=== PATIENT | male | born 1960 | race Native Hawaiian/Other Pacific Islander ===

== ENCOUNTER 2020-07-28 14:49 | Observation (INO) | payer OTHER, SELFPAY ==
[2020-07-20 13:44] VITALS: BMI 28.2
[2020-07-27] VITALS (13 sets, daily range): BP systolic 94–152; BP diastolic 61–95; PULSE 74–98; RESP 12–20; TEMP 35.9–36.9; O2SAT 96–100; BMI 28.2
--- NOTE | 2020-07-27 06:30 | DI.RAD.S_ITS ---
PROCEDURE: XR HIP W PEL IF DONE RT 2V INDICATIONS: post op films TECHNIQUE: AP pelvis and lateral view of the right hip acquired. COMPARISON: [facility], CR, XR PELVIS 1-2V, 07/27/2020, 15:24. [facility], CR, XR PELVIS WITH LATERAL HIP RIGHT, 12/05/2019, 9:35. FINDINGS: Bones: Patient is status post right hip arthroplasty, with hardware components in expected positions. The hip joint appears congruent. The visualized bony structures appear intact. Soft tissues: Overlying postoperative changes are noted. No suspicious soft tissue densities. Vasectomy clips. IMPRESSION: Expected appearance of the right total hip arthroplasty. Dictated by: Mo Robles M.D. on 07/27/2020 at 17:39 Approved by: Mo Robles M.D. on 07/27/2020 at 17:42
--- NOTE | 2020-07-27 12:07 | SUR.PREOP ---
Covid swab collected and sent. Patient here in wheelchair and with two walking sticks. Asking for assistance with the bathroom. Wheeled patient to lobby bathroom and assisted. Patient asking for water and advised patient no water before surgery but that he would need to swallow some pre-op medications and could have sips of water at that time. V/U. Patient asking to take a shower; patient is homeless. Advised patient that there was no place available for him to take a shower. Asked patient if he had a place to recover after he is discharged home and patient states that yes, he has a place to go to after he is discharged from the hospital. Advised patient that as soon as his COVID test showed negative, this nurse would assist him to the Pre-op area. V/U.
[2020-07-27 13:07] LABS: COVID19 -Nasal RAPID Negative (Negative)
[2020-07-27 13:45] LABS: Add Manual Diff / Slide Review NO; Basophils Absolute Auto 100 /uL (0-100); Basophils Percent Auto 1.2 % (0-2); Eosinophils Absolute Auto 200 /uL (0-450); Eosinophils Percent Auto 2.1 % (2-4); Hematocrit 44.8 % (41-53); Hemoglobin 14.5 g/dL (13.5-17.5); Lymphocytes Absolute Auto 1200 /uL (1100-4500); Lymphocytes Percent Auto 15.2 % (25-40); Mean Corpuscular HGB Conc 32.3 % (30-36); Mean Corpuscular Hemoglobin 26.5 PG (26-34); Mean Corpuscular Volume 81.9 fL (80-100); Monocytes Absolute Auto 1000 /uL (0-900); Monocytes Percent Auto 12.8 % (3-14); Neutrophils Absolute Auto 5600 /uL (1500-7000); Neutrophils Percent Auto 68.7 % (50-75); Platelet Count 375 X10^3/uL (150-400); Red Blood Cell Count 5.47 X10^6/uL (4.5-5.9); Red Cell Distribution Width 14.3 % (11.6-14.8); White Blood Cell Count 8.1 X10^3/uL (4.5-11.0)
[2020-07-27] MEDS: ACETAMINOPHEN 325 MG TABLET 975 MG PO (13:45)
[2020-07-27] MEDS: LACTATED RINGERS 1,000 ML 42 ML IV ×2 (13:45→15:28)
--- NOTE | 2020-07-27 13:45 | DI.RAD.S_ITS ---
PROCEDURE: XR PELVIS 1-2V INDICATIONS: INNER OP TECHNIQUE: Intraop view(s) of the pelvis acquired. COMPARISON: None. FINDINGS: Bones: No fractures or dislocations. No suspicious bony lesions. Intraoperative imaging obtained during right hip arthroplasty. Soft tissues: Visualized bowel gas pattern is normal. No suspicious soft tissue calcifications. IMPRESSION: Intraoperative imaging obtained during right hip arthroplasty. Dictated by: Radha Franco M.D. on 07/27/2020 at 16:26 Approved by: Radha Franco M.D. on 07/27/2020 at 16:26
[2020-07-27] MEDS: MELOXICAM 7.5 MG TABLET 15 MG PO (13:46)
[2020-07-27] MEDS: VANCOMYCIN 1,000 MG/200 ML PIGGYBACK 200 MG IV (13:46)
--- NOTE | 2020-07-27 13:51 | PM.PREOP ---
Pre-operative Note COVID-19 Result date/Date tested (Pos, Neg/Pending): 07/27/20 Interval Note History & Physical reviewed/Exam performed by Physician: Yes Changes to H&P: No
[2020-07-27 13:56] LABS: BUN Creatinine Ratio 23.5 (6-22); Blood Urea Nitrogen 19 mg/dL (9-20); Calcium 9.5 mg/dL (8.4-10.2); Carbon Dioxide 28 mmol/L (22-32); Chloride 102 mmol/L (98-107); Estimated Glomerular Filt Rate > 60.0 mL/min (>60); Glucose 168 mg/dL (70-100); Hemoglobin A1C% w Est Avg Glu 8.2 % (4.0-6.0); Potassium 4.3 mmol/L (3.4-5.1); Sodium 139 mmol/L (137-145)
[2020-07-27 13:57] LABS: HEMOLYSIS 75 (0-50)
[2020-07-27] MEDS: CEFAZOLIN 1 GM VIAL 2 GM IV ×2 (14:26→21:13)
--- NOTE | 2020-07-27 14:37 | SUR.OPER ---
Left Lateral on padded OR bed. Gel axillary roll. Arms secured on padded arm board with pillow supporting top arm. Padded hip positioner braces x4 - anterior and posterior chest and pelvis. Additional gel pad used anterior pelvis. Gel pad under bottom leg from knee to foot and secured with tape over sheet.
[2020-07-27] MEDS: TRANEXAMIC ACID 1,000 MG VIAL 1000 MG INJ ×2 (14:43→15:59)
[2020-07-27] MEDS: SODIUM CHLORIDE IRRIG SOLUTION 250 ML, POVIDONE-IODINE SPONGE STICKS 1 APPLIC IRR (14:44)
[2020-07-27] MEDS: SODIUM CHLORIDE IRRIG SOLUTION 250 ML, EPINEPHrine 1 MG IRR (14:44)
[2020-07-27] MEDS: BUPIVACAINE 0.5% W/ EPI (PF) 30 ML VIAL INJ (14:45)
[2020-07-27] MEDS: BUPIVACAINE LIPOSOME 266 MG/20 ML VIAL INJ (14:45)
--- NOTE | 2020-07-27 16:09 | PM.OP.1 ---
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 He had very extensive conservative treatment and a slightly brought to the operating room for a right total hip arthroplasty. No spent years attempting to get him medically stabilized and socially in and acceptable living situation as well as adequate control of his diabetes. A plan is for right total total hip arthroplasty. Anticipate he will require inpatient admission. He requires monitoring of his diabetes and his overall mobility had deteriorated to the extent that he was essentially wheelchair bound. The plan is to actively mobilize him full weight-bearing on the right leg Surgeon: Angella Garcia Log Haul Chain Feeder: Lobo Byers Anesthesia Type: General and Spinal Operative Notes Findings: Severe right hip collapse, soft bone, significant hip flexion and adduction contracture, adequate stability and range of motion Closure Type: primary Specimen(s): none sent Prosthetic devices, grafts, tissues, transplants, or devices: Garcia [employer] Nephew 58 mm R3 cup, size 10 standard offset anthology, two 6.5 mm screws, neutral poly liner, +4 by 36 head Applied: drain(s) Estimated Blood Loss (mL): 250 Blood products transfused: none Procedure in detail: The patient was seen in the pre-operative area, where the patient identified the right hip as the operative site and this was marked with my initials. The patient received pre-operative antibiotics and was taken to the operating room and placed on the operative table in the left lateral decubitus position after satisfactory anesthesia. A maritime engineer out was performed. The right leg was prepared from the ankle to the iliac crest with ChloroPrep in the usual fashion and draped through sterile drapes. The hip was approached through an approximately 20 cm incision centered over the greater trochanter and curving gently posteriorly as it went proximally. This was carried sharply to the fascia mati, which was divided and retracted with a self retaining retractor. The trochanteric bursa was excised with care being taken to avoid the sciatic nerve, which was identified and protected throughout the case. The short external rotators were incised and the capsulomuscular flap was raised and tagged for later repair. He had marked osteophyte formation and meticulous capsular release was performed from around the posterior and anterior aspect of the acetabulum. I specifically attempted to free things as much as possible in order to allow dislocation as he had a severe stiff hip with a hip flexion contracture. The hip was dislocated, and a femoral neck osteotomy performed approximately 15 mm above the lesser trochanter. Retractors were placed around the femur. The canal was opened with a box cutting osteotome, followed by a T handled reamer and a lateralizing reamer. The chili pepper broach was then used, followed by sequential broaching until there was good stability of the broach in the femur. Retractors were placed to expose the acetabulum. The labrum and central soft tissues were removed. There were marked osteophytes especially anteriorly and there were meticulously removed in order to allow exposure to the true acetabulum. Reaming was performed initially going up in 2 mm increments, then 1 mm increments until good bite was obtained with an odd sized reamer. Trial cup was placed and it was noted that it was adequately seated and had some stability The cup 1 mm larger than the last reamer was then inserted using the appropriate anteversion guides. The position was carefully checked and it was fixed with 2 screws. A trial neutral liner was placed. The broach was placed in the canal. A trial head and neck were then placed and the hip relocated and checked for leg length and stability. An intraoperative film confirmed the component position and no evidence of fracture. The patient was stable in the position of sleep, of squatting, and could be put through a range of motion with 45 degrees internal rotation without dislocation. At 90 degrees flexion, internal rotation to 90 was possible before dislocation. The hip was a little short clinically. It had good stability in I thought I would probably use a +4 neck. This was felt to be satisfactory and the appropriate components were opened, and the trials were removed. The acetabular liner was impacted into position. The final stem was then impacted into the prepared femoral canal. A brief Betadine soak was performed while trialing with head options. The hip was meticulously irrigated with normal saline. Finally the femoral head was impacted onto the stem. The acetabulum was cleared of all material and the hip relocated one final time. The capsulomuscular flap was then repaired to the greater trochanter though an awl hole using the tag sutures. The short external rotators were repaired with a nonabsorbable suture. A deep drain was placed and brought out anteriorly. The fascia mati was closed with Vicryl. The subcutaneous layer was closed with barbed sutures and SteriStrips. A Arvind dressing was applied and the patient was taken to recovery having tolerated the procedure well. Complications: none Post-operative Condition: stable Disposition: Acute Care Plan for aftercare: The patient will be maintained on a standard total hip replacement protocol with weight bearing as tolerated and posterior hip precautions. The patient will receive Aspirin and sequential compression devices for DVT prophylaxis. The patient will be discharged home when safe for the home environment.
--- NOTE | 2020-07-27 17:31 | SUR.PHASEI ---
Call placed to Anesthesiologist Nuts And Bolts Assembler - Dr Rodriguez. Pt continues to be very sleepy. Responding to GRAIN ELEVATOR AGENT Mark but immediately falls asleep. VSS. No acute distress. Affect calm and relaxed. Pt reportedly homeless and had showered in Preop prior to surgery where he had communicated presence of fatigue prior to surgery. Pupils PERRLA. Skin warm and dry. Dr Rodriguez confirmed pt being admitted to room prior to giving consent allowing pt to go to room 216 so that he may sleep and rest.
[2020-07-27] MEDS: LACTATED RINGERS 1,000 ML 125 ML IV (18:32)
--- NOTE | 2020-07-27 18:33 | PC.NURSE ---
PATIENT BACK FRO PACU,SOMNOLENT WILL WALK TO LOUD NAME AND TOUCH, BACK OUT TO SLEEP.SCDS ACTIVE,HEMOVAC AND SUZETTE IN PLACE.IV FLUIDS INFUSING CBG 137 PATIENT DOES NOT WANT TO EAT AT THIS TIME. BED ALARM ACTIVE
[2020-07-27] MEDS: DOCUSATE 100 MG CAPSULE PO (21:12)
[2020-07-27] MEDS: ACETAMINOPHEN 325 MG TABLET 650 MG PO (21:12)
[2020-07-27] MEDS: GABAPENTIN 300 MG CAPSULE PO (21:13)
[2020-07-27] MEDS: METFORMIN HCL 500 MG TABLET 1000 MG PO (21:13)
[2020-07-27] MEDS: IBUPROFEN 400 MG TABLET PO (21:13)
[2020-07-27] MEDS: ASPIRIN EC 81 MG TABLET PO (21:13)
[2020-07-27] MEDS: ATORVASTATIN 20 MG TABLET PO (21:13)
[2020-07-27] MEDS: OXYCODONE IR 5 MG TABLET 10 MG PO (21:31)
[2020-07-28] VITALS (9 sets, daily range): BP systolic 101–125; BP diastolic 52–78; PULSE 88–95; RESP 14–19; TEMP 36.1–37.6; O2SAT 94–98
[2020-07-28] MEDS: IBUPROFEN 400 MG TABLET PO ×6 (00:37→21:11)
[2020-07-28] MEDS: OXYCODONE IR 5 MG TABLET 10 MG PO (00:37)
[2020-07-28] MEDS: LACTATED RINGERS 1,000 ML 125 ML IV (02:25)
[2020-07-28] MEDS: CEFAZOLIN 1 GM VIAL 2 GM IV (05:27)
[2020-07-28 05:33] LABS: Hematocrit 39.4 % (41-53); Hemoglobin 12.6 g/dL (13.5-17.5)
[2020-07-28] MEDS: METFORMIN HCL 500 MG TABLET 1000 MG PO ×2 (08:34→21:11)
[2020-07-28] MEDS: ASPIRIN EC 81 MG TABLET PO ×2 (08:35→21:10)
[2020-07-28] MEDS: TAMSULOSIN 0.4 MG CAPSULE PO (08:35)
[2020-07-28] MEDS: DOCUSATE 100 MG CAPSULE PO ×2 (08:35→21:10)
[2020-07-28] MEDS: ACETAMINOPHEN 325 MG TABLET 650 MG PO ×3 (08:35→21:10)
[2020-07-28] MEDS: GABAPENTIN 300 MG CAPSULE PO ×2 (08:35→21:10)
[2020-07-28] MEDS: lisinopriL 10 MG TABLET 15 MG PO (08:38)
[2020-07-28] MEDS: METOPROLOL ER 25 MG TABLET PO (08:40)
[2020-07-28] MEDS: NF - Empagliflozin (Jardiance) 10 mg Tablet 10 EACH PO (09:34)
[2020-07-28] MEDS: OXYCODONE IR 5 MG TABLET PO ×3 (09:37→19:14)
--- NOTE | 2020-07-28 11:15 | PT.IIE ---
Current Diagnoses Idiopathic aseptic necrosis of right femur (07/27/20) Surgery Performed Operation Date: 07/27/20 13:45 Actual Procedures p Total Hip Arthroplasty(Right) - Angella Garcia MD Surgical History (Last Updated 04/20/20 @ 12:31 by Patsy Neri, RENATO) H/O Achilles tendon repair History of appendectomy History of colon resection History of colonoscopy S/P left knee arthroscopy S/P right knee arthroscopy Medical History (Last Updated 07/20/20 @ 14:27 by Pebbles Watts, RENATO) Abdominal pain Arrhythmia Depression Diverticulitis Elevated cholesterol Enlarged prostate Fracture Headache History of diverticulitis History of diverticulosis Hyperlipidemia Hypertension IDDM (insulin dependent diabetes mellitus) Idiopathic aseptic necrosis of right femur Intentional weight loss Low back pain Macular drusen Peripheral neuropathy Psychosocial stressors RBBB Sleep apnea Tachycardia Umbilical hernia Physical Therapy Inpatient Evaluation/Re-Eval M1 PT/OT-IP Prior Functional Status Start: 07/28/20 12:55 Freq: NEEDED Status: Active Protocol: Document 07/28/20 11:15 AB (Rec: 07/28/20 13:08 [email or web address]) Medical Review Prior Functional Status Medical History Reviewed Yes Communication able to make needs known Mobility and Gait pt stated that he is modified independent with all mobilities and ambulation using bilateral SPC for ambulation; limited in mobility due to hip pain Social History Household Members none Living Arrangements Homeless Number of Floors (Floors) One Floor Number of Stairs To Enter/Railing? 2 steps B rails to enter Home Environment High Toilet,Walk in Shower Home Equipment Four Wheel Walker,Straight Cane,Shower Seat with Backrest ,Hand Held Shower,Grab Bars Near Toilet,Grab Bars In Shower Additional Social History Comment pt is homeless but plans to go to [employer] if needed: set up above is regarding [employer] info M2 PT-IP Current Condition Start: 07/28/20 12:55 Freq: NEEDED Status: Active Protocol: Document 07/28/20 11:15 AB (Rec: 07/28/20 13:08 AB [email or web address]) Physical Therapy Current Condition Current Condition Evaluation Date 07/28/20 Treatment Diagnosis s/p R ZHEN posterior approach; difficulty in walking Onset Date 07/27/20 Precautions Posterior Hip Precautions No Hip Flexion > 90 degrees,No Hip Internal Rotation,No Hip Adduction Weight Bearing Status Weight Bearing Status Weight Bear as Tolerated Allowed Weight Bearing Amount (enter % RLE: WBAT or #) (%) M3 PT-IP Subjective Start: 07/28/20 12:55 Freq: NEEDED Status: Active Protocol: Document 07/28/20 11:15 AB (Rec: 07/28/20 13:08 [id number]) Subjective Physical Therapy Visit Type Type Initial Evaluation Visit Start Time 11:15 Visit Stop Time 12:05 Total Visit Minutes 50 Number of COMMUNITY OUTREACH ADVOCATE Visits 0 Physical Therapy Visit Comments Patient Comments agreeable to do PT Therapy Pain Assessment Pain When Pain Assessed At Rest Pain Present Pain Present Pain Reported Location Right Lower Hip Intensity 2 Scale Used increases with mobility Pain Behaviors Guarding,Holding Area,Wincing Pain Management Techniques Apply Cold,Distraction, Modification of Treatment,Re- positioning,Timing of Activity with Medications M4 PT-IP Mobility and Gait Start: 07/28/20 12:55 Freq: NEEDED Status: Active Protocol: Document 07/28/20 11:15 AB (Rec: 07/28/20 13:08 [email or web address]) PT-Bed Mobility Assessment Supine to Sit Supine to Sit Maximum Assistance PT-Transfer Assessment Sit to and From Stand Sit to and from Stand Maximum Assistance,1 Person Assistance Equipment Transfer Assistive Device Gait Belt,Front Wheeled Walker Orthotic/Prosthetic Devices or Brace: No Transfers Transfer Destination Toilet Transfer Technique ambulated using FWW Transfer Ability Level of Assist Moderate Assistance,Maximum Assistance,1 Person Assistance ,Use of Upper Extremities Comments Mobility Comments educated pt on posterior hip precautions. pt completed supine to sit max A and max cues. pt tends to hook LLE under RLE to assist and cued for hip precautions. pt has increase muscle guarding not only on RLE but also trunk guarding affecting mobility and increase pain. pt tends to anticipate the pain and tense up his whole body requiring increase assistance for safety and steadiness. pt was able to sit on EOB initially max A but after positioning and assuring pt, pt was able to relax and only needed CGA for sitting balance. required max A for sit to stand and again with increase guarding. initial 5 steps max A but after a few more steps only required mod A using FWW. pt ambulated in room ~ 25 ft mod to max A and cues. pt requested to use the toilet. ambulated using FWW mod A and was able to maintain standing using FWW/grab bar for support CGA. pt ambulated out of the toilet and agreed to sit up on chair. required max A with controlled descent to chair with cues to maintain hip precautions. positioned pt on chair. call light and table placed within reach. Gait Assessment Gait Gait Assistance Required: Moderate Assistance,Maximum Assistance Distance (Feet) 25 Able to Maintain Weight Bearing Status Yes During Gait Assistive Devices Assistive Device Gait Belt,Front Wheeled Walker Orthotic/Prosthetic Devices or Brace: No Gait Deviations General Gait Pattern Antalgic,Decreased Stride Length,Decreased Feet Clearance Factors Limiting Gait Function Factors Limiting Gait Function Decreased Activity Tolerance, Decreased Strength,Difficulty Following Directions,Limited Range of Motion,Pain,Poor Balance,Poor Safety Awareness Comments Gait Comments pls refer to mobility section for details PT-Balance Assessment Sitting Balance and Reactions Static Sitting Balance Ability Good Dynamic Sitting Balance Ability Fair Standing Balance and Reactions Static Standing Balance Ability Fair Dynamic Standing Balance Ability Poor Device Used FWW M5 PT-IP Objective Assessments Start: 07/28/20 12:55 Freq: NEEDED Status: Active Protocol: Document 07/28/20 11:15 AB (Rec: 07/28/20 13:08 AB [email or web address]) Orientation Orientation/Cognition Level of Alertness Alert Orientation Name,Place,Situation Safety Awareness Decreased Safety Awareness Memory Description Short Term Impaired Strength Lower Extremity Strength Assessment Right Impaired Hip 3-/5 Knee 3+/5 Sensation Assessment Sensation Gross Sensation WNL Muscle Tone Muscle Tone WNL Yes M6 PT-IP Treatment Start: 07/28/20 12:55 Freq: NEEDED Status: Active Protocol: Document 07/28/20 11:15 AB (Rec: 07/28/20 13:08 AB [email or web address]) Physical Therapy Treatment Education Education Provided Precautions,Weight Bearing Status,Post-Op Packet,Safety M7 PT-IP Assessment and Plan Start: 07/28/20 12:55 Freq: NEEDED Status: Active Protocol: Document 07/28/20 11:15 AB (Rec: 07/28/20 13:08 AB [email or web address]) PT Summary Assessment and Plan Potential Rehabilitation Potential Good Status of Condition at Evaluation Evolving Summary Impairments Pain,ROM,Strength,Balance, Coordination,Sensation,Tone, Cognition,Bed Mobility, Transfers,Gait,Activity Tolerance Assessment Summary pt requiring mod to max A using FWW for mobility. c/o increase pain with mobility with increase guarding affecting mobility and safety. requires cues to maintain hip precautions. pt will need SNF rehab to improve strength and mobility independence. Goals Bed Mobility Goal Standby Assistance Transfer Goal Standby Assistance,Front Wheeled Walker Gait Goal Standby Assistance,Front Wheel Walker Gait Distance 100 Other Goals improve ambulation usign 4WW 150 ft SBA up/down 2 steps B rails SBA Days to Meet Goals 10 Frequency of Treatment Frequency Of Treatment Twice a Day Treatment Plan Physical Therapy Treatment Plan Bed Mobility Training,Transfer Training,Gait Training, Therapeutic Exercise,Balance Retraining,Post Op Education, Discharge Planning,Hot or Cold Pack,Neuromuscular Re-ed, Coordination Retraining,Manual Therapy Precautions Posterior Hip Precautions No Hip Flexion > 90 degrees,No Hip Internal Rotation,No Hip Adduction Recommendations To Nursing Amount of Assist Needed 1 Person Assist Discharge Recommendations PT Discharge Recommendations SNF Rehab Transportation Needs at Discharge Wheelchair/Cabulance
--- NOTE | 2020-07-28 11:39 | CM.DANOTE ---
Addendum entered by Frances Crandallman, BLOCKING MACHINE OPERATOR SECOND 07/28/20 14:22: ADD: SW called both [facility] and [facility] admissions and left another msg inquiring if they had received the referral and if they have reviewed and have any questions and likely ready for d/c tomorrow. SW requested they call back with update or questions. BF Addendum entered by Frances Bautista, BLOCKING MACHINE OPERATOR SECOND 07/28/20 13:59: ADD: Return call from July at [facility], they are not contracted with L&I but willing to contact L&I casemanager to determine if [facility] and [facility] facilities cannot accept if L&I would be willing to do one time contract with [facility]. BF Original Note: Patient is a 60 year old male who was admitted on 07/27/20 for Right Total Hip. Pt has L&I for coverage of his surgery and ROSAS. EMR was reviewed. Per Asia REYNOSO, pt likely will need SNF at d/c as he is currently staying in his car and working on local company intermodal truck driver housing. PT ordered and pending. Per CM Swatch Maker Umu, due to pt's homeless status [facility] team had alerted CM dept prior to pt's discharge to set up d/c plan after surgery. CM Swatch Maker Umu has been in contact with SNO and L&I Josie who has approved SNF at d/c. Per Pebbles Watts's discussion with pt prior to surgery, pt has applied for low income apt in [facility] and should know this week if he is accepted and has back up plan of paying for motel at [facility] in [facility] post SNF stay. SW met bedside with pt and explained role and pt confirms that he is agreeable to SNF at d/c prior to d/c to a longer term situation and pt has not yet heard if his application for apt in [place] was accepted yet. Pt states his preference for SNF would be either in [facility] or [place] due to location that is near his supportive friends and family but he would be agreeable to any accepting SNF. Pt states he has not gotten his COVID vaccinations yet. SW discussed SNF would then require a quarantine period and pt is agreeable. SW contacted following SNF's: [facility]: tight on beds but willing to review, hesitant about d/c plan still. [facility] faxed referral. [facility]: want to confirm pt active on his Rosas as backup, willing to review. Faxed referral. [facility]: left msg for admissions. Faxed referral [facility]: left msg for admissions. Faxed referral. [facility]: updated admissions Nicky on pt situation, they are willing to review. PASRR completed in anticipation of SNF. L&I auth for SNF is scanned into pt's medical record in case SNF's need this documentation. Plan: SW to follow for SNF review for hopeful placement at d/c by tomorrow ideally. LISA Gutierrez Discharge Planning/Care Management CM Discharge Assessment Start: 07/28/20 10:38 Freq: Status: Active Protocol: Document 07/28/20 10:38 BF (Rec: 07/28/20 10:41 BF [id number]) Discharge Planning Assessment Assigned Ladder Operator LISA Daniels DPOA/Assigned Designee Name none, informally sister Corin Bar Contact Information [phone] Advance Directives? No Advance Directives on File No History Provided By Patient,Medical Record Has Patient been admitted in last 30 No days? 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 Independent with ADL's Yes Is patient alert and oriented? Yes Caregiver for Another No Patient/Family Preference Correction Facility Barriers to Discharge Yes Comment homelessness, L&I has been approved Discharge Plan Correction Facility Transportation Arrangement if SNF, facility van Referrals Initiated Correction If patient plan is SNF: Has PASSR been Yes completed? Medicare Choice List Provided Yes SNF/HH Preference Any that will accept him, preference is [facility], [facility], or [facility] due to location close to his supports Has Agency SNF been contacted Yes Whiteboard Updated in Patient Room with Yes name and ext. # of Ladder Operator Review Status In Process Please Provide Date Initial DC 07/28/20 Assessment Was Performed Next Review Type Continued Stay Review Pre-Anesthesia Assessment Start: 07/20/20 13:44 Freq: Status: Complete Protocol: Document 07/20/20 13:44 CAB (Rec: 07/20/20 14:39 CAB [id number]) Pre-Anesthesia Assessment PAC Comment Pt advised by SNO to have a COVID rapid on admit Pt lives in his car. Preferred Name Pat Patient Information Reviewed Via Phone Assessment Assessment Completed With Patient Comment Outside EKG scanned Primary Care Provider Rosanna Evans Seen Specialist in Last 12 Months Yes Specialist Seen Loss Prevention Detective,Orthopedist Primary Language Greek Preferred Language Greek Emergency Services Dispatcher Required No Height 182.88 cm Weight 94.347 kg Body Mass Index (BMI) 28.2 Hearing Ability Normal Visual Assist Glasses Dentition Type Teeth, Natural Present,Teeth, Broken,Teeth, Missing Barriers to Learning None,Memory Other Aids No Hx Anesthesia Reactions No Hx Family Anesthesia Reaction No Hx Malignant Hyperthermia No Hx Blood Transfusions No Hx Blood Transfusion Reaction No Anesthesia Review Requested Yes: Previously reviewed -scanned to record Malt Loader Yes: Pt lives in his car, approved to go to [place] Additional comment [facility] [place], applied for housing to follow SNF. I notified our care mngmt alcohol intake current alcohol intake frequency a few times a month Smoking Status Current some day smoker Tobacco type cannabis/marijuana Substance Use Type marijuana Comment Pt advised not to smoke marijuana 24 hours prior to surgery Pain Present Pain Reported Musculoskeletal Symptoms Abnormal Gait,Back Pain, Difficulty Walking,Joint Pain, Limited Range of Motion, Numbness History of Falling (Recent or History of No ) Patient is completely paralyzed or No completely immobile Prosthesis or Orthotic Device Cane,Front Wheel Walker Mental Status Oriented to own ability Is patient on oxygen? No Does patient have GARCIA/SOB Yes Hx Sleep Apnea Yes: Pt denies, record notes it Currently Taking a Beta Holley Yes: Metoprolol Can You Climb a Flight of Stairs Without No SOB Hx Chest Pain No Hx SOB No Hx Syncope or Dizziness Yes Anti-Coagulant Therapy No Has a Loss Prevention Detective Yes: Dr. English-visit 05/25/20 Cardiac Testing Yes: Echo 05/21/20 EF 50-55% Hx Pacemaker/ICD No Cardiac Clearance Received Yes Comment Cardiac records scanned Diet Type At Home Regular dysphagia No Bladder Pattern Incontinent Urinary Catheter Present No Hx Urinary Self Catheterization No Diabetes Yes Hx Drug Resistant Organism No Presence of External or Internal Medical No Devices Have you had any close contact with No someone diagnosed with COVID-19? Marital Status Single Lives With none Prior Living Arrangements Homeless Support System None Does the Patient Have Assistance After No: Pt has no one available to Surgery assist with care at DC Patient Discharge Plan Description Correction Facility/Rehab Feels Safe in Current Environment No Do you have thoughts of harming yourself None or others? Are you currently considering suicide? No Do you have a plan to hurt yourself or No Plan others? Do You Have Any Spiritual Beliefs That No May Affect Your HC Choices? Do You Have Any Cultural Practices That No: May Affect Your HC Choices? Comment Atheist Who Can We Speak to About Patient's Care Family, friends Identifying Code for Release of Patient Declines to issue Information Health Care Proxy/Next of Kin Corin (sister) Health Care Proxy Emergency Contact Name Corin (sister) Emergency Contact Advance Directives? No Power of Coal Briquette Machine Operator No PAC Instructions Diabetes instructions,Durable medical equipment,Medications to take/avoid,Nasal antibiotic ,No ETOH/petroleum product on skin DOS,NPO,Post-op transportation,Pre-surgical wash,Sensory aids,Sturdy shoes /comfortable clothes,Do not bring valuables and remove jewelry
[2020-07-28] MEDS: INSULIN LISPRO 100 UNIT/ML 3ML VIAL SUBCUT ×2 (12:13→17:20)
--- NOTE | 2020-07-28 13:59 | P.PN_ITS ---
Subjective Subjective Date Patient Seen: 07/28/20 Time Patient Seen: 08:20 Interval history: Patient's pain is [id number]. Denies fever or chills. No nausea or vomiting. Exam Vital Signs (past 8 hours): - 07/28/20 08:16 07/28/20 08:38 07/28/20 08:40 Temperature 98.3 F Pulse Rate 93 H 93 H 93 H Respiratory Rate 16 Blood Pressure 114/78 114/78 114/78 Pulse Oximetry 98 07/28/20 10:10 07/28/20 12:02 Temperature 97.0 F L Pulse Rate 92 H 95 H Respiratory Rate 16 Blood Pressure 117/75 119/52 L Pulse Oximetry 94 Oxygen Delivery Method Room Air Oxygen Flow Rate 0 Narrative Exam Narrative: 60-year-old male resting comfortably in bed in no apparent distress. Arvind dressing is on and functioning. Motor function intact distal right lower extremity. Sensation grossly intact to light touch distal right lower extremity. Objective Labs Result Diagrams: 07/28/20 05:08 07/27/20 13:41 Labs: Laboratory Results - last 24 hr 07/28/20 05:08 Hgb 12.6 L Hct 39.4 L PFSH Medical History Abdominal pain Arrhythmia Depression Diverticulitis Elevated cholesterol Enlarged prostate Fracture Headache History of diverticulitis History of diverticulosis Hyperlipidemia Hypertension IDDM (insulin dependent diabetes mellitus) Idiopathic aseptic necrosis of right femur Intentional weight loss Low back pain Macular drusen Peripheral neuropathy Psychosocial stressors RBBB Sleep apnea Tachycardia Umbilical hernia Surgical History H/O Achilles tendon repair History of appendectomy History of colon resection History of colonoscopy S/P left knee arthroscopy S/P right knee arthroscopy Social History household members: none Smoking Status: Current some day smoker alcohol intake: current Assessment & Plan Post-op Postoperative Procedures: Procedures Operation Date: 07/27/20 13:45 Actual Procedures Side Surgeon p Total Hip Arthroplasty Right Angella Garcia MD Postop day 1 status post right total hip arthroplasty. Mobilize with physical therapy. Posterior hip precautions. Likely [facility] to [facility] facility tomorrow. Quality VTE Deep Vein Thrombosis/Pulmonary Embolism Present on Admission: No
--- NOTE | 2020-07-28 15:48 | PT.IPTN ---
Current Diagnoses Idiopathic aseptic necrosis of right femur (07/28/20) Surgery Performed Operation Date: 07/27/20 13:45 Actual Procedures p Total Hip Arthroplasty(Right) - Angella Garcia MD Physical Therapy Treatment Note M2 PT-IP Current Condition Start: 07/28/20 12:55 Freq: NEEDED Status: Active Protocol: Document 07/28/20 11:15 AB (Rec: 07/28/20 13:08 AB [id number]) Physical Therapy Current Condition Current Condition Evaluation Date 07/28/20 Treatment Diagnosis s/p R ZHEN posterior approach; difficulty in walking Onset Date 07/27/20 Precautions Posterior Hip Precautions No Hip Flexion > 90 degrees,No Hip Internal Rotation,No Hip Adduction Weight Bearing Status Weight Bearing Status Weight Bear as Tolerated Allowed Weight Bearing Amount (enter % RLE: WBAT or #) (%) M3 PT-IP Subjective Start: 07/28/20 12:55 Freq: NEEDED Status: Active Protocol: Document 07/28/20 15:14 SP (Rec: 07/28/20 16:51 SP [id number]) Subjective Physical Therapy Visit Type Type Treatment Note Visit Start Time 15:14 Visit Stop Time 15:48 Total Visit Minutes 34 Number of FULFILLMENT COORDINATOR Visits 1 Physical Therapy Visit Comments Patient Comments agreeable to working with PT. Patient Goals Go to SNF to get stronger. Therapy Pain Assessment Pain When Pain Assessed At Rest Pain Present Pain Present Pain Reported Location Right Lower Hip Intensity 7 Scale Used Numeric (0 - 10) Description Aching,Spasm,With Movement Pain Behaviors Facial Grimacing,Guarding, Wincing Pain Management Techniques Apply Cold,Distraction, Modification of Treatment,Re- positioning,Timing of Activity with Medications M4 PT-IP Mobility and Gait Start: 07/28/20 12:55 Freq: NEEDED Status: Active Protocol: Document 07/28/20 15:14 SP (Rec: 07/28/20 16:51 SP [id number]) PT-Bed Mobility Assessment Supine to Sit Supine to Sit Contact Guard Assistance,1 Person Assistance,Bedrails Sit to Supine Sit to Supine Contact Guard Assistance, Minimal Assistance,1 Person Assistance,Bedrails Scooting Scooting to Edge of Bed Contact Guard Assistance Scooting Up and Down in Bed Contact Guard Assistance PT-Transfer Assessment Sit to and From Stand Sit to and from Stand Contact Guard Assistance,1 Person Assistance,Use of Upper Extremities Equipment Transfer Assistive Device Gait Belt,Front Wheeled Walker Orthotic/Prosthetic Devices or Brace: No Transfers Transfer Destination Bed,Chair Transfer Technique ambulated using FWW Transfer Ability Level of Assist Contact Guard Assistance,Use of Upper Extremities Comments Mobility Comments Pt recalled 2/3, occasional cues during tx for to maintain no hip IR RLE repositioning in/out bed hooking LLE under RLE. Supine> sit, scoot to EOB sit>stand CGA using FWW with cuing for pushing from bed not FWW, good RLE out in front. Pt tends not to bear wt initially come to standing then cued wt shift into RLE, proceeded walk further distance in room to door and back to chair CGA step to gait , cued pivot back step with fWW fully for safety then reach back slow descent into chair CGA. Pt required rest break and reported increased achy pain in R hip. Sit>stand CGA pushing from chair ambulated further distance in hallway CG> SBA 160 ft using FWW step to initally then modified step over step patterning, cued for quick pivot steps during turns to maintain no IR of R hip, improved. Pt requested use of toilet forward facing in standing support of FWW with 1 UE, stable. Continue cues for RLE ER pivot during R turn in bathroom w/ fww CGA for safety, walked to sink, cued for fWW facing sink for safety support, noted L trunk lean WB more into LLE but stable, cGA. Pt returned to bed stand> sit >supine with cuing during hook LLE under RLE to reposition into bed to maintain no adduction cross midline cGA, required Min A for RLE supported on pillow and pillow between BLE for safety no adduction cross midline. Pt able to scoot up in bed with BUE on bed rails and LLE. Instructed LE post op ex with cuing for gentle muscle facilitation, improved calf cramping with ease activation. Pt had call light and all needs in reach, bed alarmed before left. Gait Assessment Gait Gait Assistance Required: Contact Guard Assist Distance (Feet) 160 Able to Maintain Weight Bearing Status Yes During Gait Assistive Devices Assistive Device Gait Belt,Front Wheeled Walker Orthotic/Prosthetic Devices or Brace: No Gait Deviations General Gait Pattern Antalgic,Decreased Stride Length,Decreased Feet Clearance,Step-to Gait Factors Limiting Gait Function Factors Limiting Gait Function Decreased Activity Tolerance, Decreased Strength,Difficulty Following Directions,Limited Range of Motion,Pain,Poor Safety Awareness Comments Gait Comments Refer to mobility comments PT-Balance Assessment Sitting Balance and Reactions Static Sitting Balance Ability Normal Dynamic Sitting Balance Ability Good Standing Balance and Reactions Static Standing Balance Ability Good Dynamic Standing Balance Ability Fair Device Used FWW M5 PT-IP Objective Assessments Start: 07/28/20 12:55 Freq: NEEDED Status: Active Protocol: Document 07/28/20 11:15 AB (Rec: 07/28/20 13:08 AB [id number]) Orientation Orientation/Cognition Level of Alertness Alert Orientation Name,Place,Situation Safety Awareness Decreased Safety Awareness Memory Description Short Term Impaired Strength Lower Extremity Strength Assessment Right Impaired Hip 3-/5 Knee 3+/5 Sensation Assessment Sensation Gross Sensation WNL Muscle Tone Muscle Tone WNL Yes M6 PT-IP Treatment Start: 07/28/20 12:55 Freq: NEEDED Status: Active Protocol: Document 07/28/20 15:14 SP (Rec: 07/28/20 16:51 SP [id number]) Physical Therapy Treatment Education Education Provided Precautions,Weight Bearing Status,Post-Op Packet,Safety M7 PT-IP Assessment and Plan Start: 07/28/20 12:55 Freq: NEEDED Status: Active Protocol: Document 07/28/20 15:14 SP (Rec: 07/28/20 16:51 SP [id number]) PT Summary Assessment and Plan Potential Rehabilitation Potential Good Status of Condition at Evaluation Evolving Summary Impairments Pain,ROM,Strength,Balance, Coordination,Sensation,Tone, Cognition,Bed Mobility, Transfers,Gait,Activity Tolerance Progress Towards Goals Progressing Toward Goals,Slow Progress due to Pain,Slow Progress due to Activity Tolerance Assessment Summary Pt requiring CGA Supine>sit, sit<> stand, gait CGA using FWW during mobility, sit> supine Min A RLE repositioning in bed. c/o increase pain and little reported tingling/ numbness R glut down lateral thigh toward end of 160 ft gait using FWW and decreased WB into RLE. requires cues to maintain hip precautions. pt will need SNF rehab to improve strength and mobility independence. Goals Bed Mobility Goal Standby Assistance Transfer Goal Standby Assistance,Front Wheeled Walker Gait Goal Standby Assistance,Front Wheel Walker Gait Distance 100 Other Goals improve ambulation usign 4WW 150 ft SBA up/down 2 steps B rails SBA Days to Meet Goals 10 Frequency of Treatment Frequency Of Treatment Twice a Day Treatment Plan Physical Therapy Treatment Plan Bed Mobility Training,Transfer Training,Gait Training, Therapeutic Exercise,Balance Retraining,Post Op Education, Discharge Planning,Hot or Cold Pack,Neuromuscular Re-ed, Coordination Retraining,Manual Therapy Other Recommendations and Next Treatment review hip precautions and Focus post op ex, bed mobility, transfers, assess gait using 4WW and 1 step mgt using AD if safe. Precautions Posterior Hip Precautions No Hip Flexion > 90 degrees,No Hip Internal Rotation,No Hip Adduction Recommendations To Nursing Amount of Assist Needed 1 Person Assist Discharge Recommendations PT Discharge Recommendations SNF Rehab Equipment Needed for Home Before FWW if unsafe to use 4WW Discharge Transportation Needs at Discharge Wheelchair/Cabulance
[2020-07-28] MEDS: INSULIN GLARGINE 100 UNIT/ML 3ML PEN 24 UNIT SUBCUT (17:25)
[2020-07-28] MEDS: ATORVASTATIN 20 MG TABLET PO (21:11)
[2020-07-29 00:40] VITALS: BP 130/78; PULSE 91; RESP 20; TEMP 36.8; O2SAT 94
[2020-07-29] MEDS: IBUPROFEN 400 MG TABLET PO ×6 (01:21→21:35)
[2020-07-29 04:20] VITALS: BP 137/87; PULSE 90; RESP 20; TEMP 36.9; O2SAT 95
[2020-07-29] MEDS: INSULIN LISPRO 100 UNIT/ML 3ML VIAL 6 UNIT SUBCUT ×3 (08:20→17:26)
--- NOTE | 2020-07-29 08:33 | P.PN_ITS ---
Subjective Subjective Date Patient Seen: 07/29/20 Time Patient Seen: 08:33 Interval history: Patient states he is doing well overall and is in mild discomfort at rest. Patient rates his pain a 4/10 in intensity. At this time the patient denies fever, chills, nausea, chest pain, shortness of breath, or urinary retention. Patient reports good sensation throughout the bilateral lower extremities. He notes that his condition has improved significantly since surgery. Exam Vital Signs (past 8 hours): - 07/29/20 00:40 07/29/20 04:20 Temperature 98.3 F 98.5 F Pulse Rate 91 H 90 Respiratory Rate 20 20 Blood Pressure 130/78 137/87 Pulse Oximetry 94 95 Oxygen Delivery Method Room Air Oxygen Flow Rate 0 Narrative Exam Narrative: 60-year-old male postop day 2 status post right posterior total hip arthroplasty. Patient is resting comfortably in chair, is in no acute distress, is alert and oriented x3. Skin is warm and dry, and the skin surrounding the incision site is free of erythema, warmth, induration, or discharge. Arvind dressing over the incision site is clean, dry, intact, and functional. Slight decreased sensation to light touch appreciated over the bilateral knes extending distally along the lateral aspect of the bilateral lower legs. Hip flexion performed bilaterally with slight pain and difficulty on the right. Ankle dorsiflexion, plantar flexion, eversion, inversion performed bilaterally without difficulty or discomfort. Palpable pulses appreciated, capillary refill less than 2 seconds. Calves are soft and nontender, negative Homans sign. No other signs of DVT appreciated. Const General: cooperative, healthy appearing and comfortable Resp Effort & Inspection: normal respiratory effort and able to speak in complete sentences Skin General: no rashes or lesions noted Objective Labs Result Diagrams: 07/28/20 05:08 07/27/20 13:41 [facility] Medical History Abdominal pain Arrhythmia Depression Diverticulitis Elevated cholesterol Enlarged prostate Fracture Headache History of diverticulitis History of diverticulosis Hyperlipidemia Hypertension IDDM (insulin dependent diabetes mellitus) Idiopathic aseptic necrosis of right femur Intentional weight loss Low back pain Macular drusen Peripheral neuropathy Psychosocial stressors RBBB Sleep apnea Tachycardia Umbilical hernia Surgical History H/O Achilles tendon repair History of appendectomy History of colon resection History of colonoscopy S/P left knee arthroscopy S/P right knee arthroscopy Social History household members: none Smoking Status: Current some day smoker alcohol intake: current Assessment & Plan Post-op Postoperative Procedures: Procedures Operation Date: 07/27/20 13:45 Actual Procedures Side Surgeon p Total Hip Arthroplasty Right Angella Garcia MD Postoperative day: 2 Postoperative status: doing well Postoperative plan: ambulate Postoperative plan narrative: Patient is to continue working on ambulation with the assistance of a front wheeled walker with physical therapy. Standard total hip replacement protocol with posterior hip precautions. Current pain management regimen is to be continued as it is adequately controlled the patient's pain level at this time. Aspirin 81 mg twice daily is to be continued for 6 weeks for DVT prophylaxis. Plan for senior living facility transfer either today or tomorrow due to the patient's living situation and postoperative plan. Time Spent With Patient Time with patient: less than 15 minutes Quality VTE Deep Vein Thrombosis/Pulmonary Embolism Present on Admission: No
--- NOTE | 2020-07-29 08:58 | CM.DPC ---
Addendum entered by Kelley Barone LPN 07/29/20 12:53: Spoke now again with Homa/GREGORY. She said referral still in process and staff busy with other admits for today. She says the team should have a decision by 1530. She is aware that the d/c order is in place. Addendum entered by Kelley Barone LPN 07/29/20 12:49: Left a vm for Irene CC/admissions: [phone] re ? status of the referral as no reponse yet to GARY Avitia's call from this morning. Did add that pt has a d/c order. Addendum entered by Kelley Barone LPN 07/29/20 12:40: Have requested now that GARY Avitia help in widening the snf search by checking with all snf's in [facility] and [place] to see which may be contracted with L&I as search clearly needs to be widened. Addendum entered by Kelley Barone LPN 07/29/20 10:06: [facility]Yamila has returned call. We must decline. We do not have a bed for him. Addendum entered by Kelley Barone LPN 07/29/20 09:06: Adore/GARY retrieved letter from L&I from Med Records scan sent to Dr. Garcia on 06/09 and with confirmation of snf and hospital coverage. This is scanned now to [facility] per Homa's request. Nicky/tee did reach out to L&I and was told that all other L&I facilities must turn pt down before a single case agreement would be considered. Original Note: DCP: continued. Case received, EMR and hand off note reviewed. Followed up with phone calls to Fel[facility]/still in review. Team concerned re post snf plan and beds are tight. Left on admissions line: [facility] and will check on ? active status of [place] [employer]. Will followup with Lui WILLSON after Rounds. Updated ortho CHANTELLE Gomez re lack of accepting facility at this time. Manager Payer Abigail then spoke with Jason and advised him that if pt is stable for d/c today the d/c order should be placed. Jason is doing this now. Checked in with pt and updated his re this. He states that he still does not know anything about his possible approval for an apartment. Encouraged him to call his customer contact specialist today. Pt does say that he has the funds for a motel and plans to stay a month at a time if his housing does not come through. Pt says he does have [place] Medicaid/ Have asked Admission Counselor Group to confirm same. P: work on the snf d/c.
--- NOTE | 2020-07-29 09:23 | PM.DS.1 ---
History of Present Illness History of Present Illness Date Patient Seen: 07/29/20 Time Patient Seen: 09:23 Chief complaint: Right Total Hip Arthroplasty *OPB* Narrative: This is a 60-year-old gentleman with severe right hip osteoarthritis who had an industrial injury and developed severe posttraumatic osteoarthritis. He had very extensive conservative treatment and a slightly brought to the operating room for a right total hip arthroplasty. No spent years attempting to get him medically stabilized and socially in and acceptable living situation as well as adequate control of his diabetes. A plan is for right total total hip arthroplasty. Anticipate he will require inpatient admission. He requires monitoring of his diabetes and his overall mobility had deteriorated to the extent that he was essentially wheelchair bound. The plan is to actively mobilize him full weight-bearing on the right leg Discharge Providers Provider Date of admission: 07/28/20 14:49 Discharge Date: 07/29/20 Primary care physician: Rosanna Evans MD Consults: 07/27/20 06:30 Consult to Anesthesiology Routine Comment: Consulting Provider: Anesthesiologist Reason for consultation: Regional block for post operative pain control 07/27/20 17:57 Consult to Discharge Planning Routine Comment: Consult to Physical Therapy Evaluate & Treat Comment: Physician Instructions: post op ZHEN protocol Consult to Respiratory Therapy Evaluate & Treat Comment: Physician Instructions: Evaluate and treat 08/26/20 06:30 Consult to Anesthesiology Routine Comment: Consulting Provider: Anesthesiologist Reason for consultation: Regional block for post operative pain control Discharge provider: Jason Reece PA-C Summary Hospital Course Discharge Diagnosis: 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 Following the procedure the patient has been convalescing appropriately in his pain has been managed with his current pain management regimen. Throughout the course of his stay in the hospital the patient has denied fever, chills, nausea, chest pain, shortness of breath, or urinary retention. Aspirin 81 mg twice daily has been used for DVT prophylaxis along with the assistance of sequential compression devices. Patient successfully worked on ambulation and stair Park with physical therapy. Dressing over the incision site has remained clean, dry, and intact. Patient has remained standard total hip replacement protocol with posterior hip precautions. Status at Discharge Cognitive/behavioral status at discharge: oriented Functional status at discharge: uses cane/walker Overall status at discharge: patient is progressing back to baseline Exam Vital Signs (past 8 hours): - 07/29/20 04:20 Temperature 98.5 F Pulse Rate 90 Respiratory Rate 20 Blood Pressure 137/87 Pulse Oximetry 95 Oxygen Delivery Method Room Air Oxygen Flow Rate 0 Narrative Exam Narrative: 60-year-old male postop day 2 status post right posterior total hip arthroplasty. Patient is resting comfortably in chair, is in no acute distress, is alert and oriented x3. Skin is warm and dry, and the skin surrounding the incision site is free of erythema, warmth, induration, or discharge. Arvind dressing over the incision site is clean, dry, intact, and functional. Slight decreased sensation to light touch appreciated over the bilateral knes extending distally along the lateral aspect of the bilateral lower legs. Hip flexion performed bilaterally with slight pain and difficulty on the right. Ankle dorsiflexion, plantar flexion, eversion, inversion performed bilaterally without difficulty or discomfort. Palpable pulses appreciated, capillary refill less than 2 seconds. Calves are soft and nontender, negative Homans sign. No other signs of DVT appreciated. Const General: cooperative, healthy appearing and comfortable Resp Effort & Inspection: normal respiratory effort Skin General: no rashes or lesions noted Objective Labs Result Diagrams: 07/28/20 05:08 07/27/20 13:41 [facility] Medical History Abdominal pain Arrhythmia Depression Diverticulitis Elevated cholesterol Enlarged prostate Fracture Headache History of diverticulitis History of diverticulosis Hyperlipidemia Hypertension IDDM (insulin dependent diabetes mellitus) Idiopathic aseptic necrosis of right femur Intentional weight loss Low back pain Macular drusen Peripheral neuropathy Psychosocial stressors RBBB Sleep apnea Tachycardia Umbilical hernia Surgical History H/O Achilles tendon repair History of appendectomy History of colon resection History of colonoscopy S/P left knee arthroscopy S/P right knee arthroscopy Social History household members: none Smoking Status: Current some day smoker alcohol intake: current Discharge Assessment & Plan Assessment and Plan Assessment: Patient is doing well. Condition has improved significantly since surgery. Plan of Treatment: Patient is to continue outpatient physical therapy following discharge from the hospital. First postoperative visit in clinic is scheduled for 2 weeks following discharge. Current pain management regimen is to be continued. Aspirin 81 mg twice daily is to be continued for 6 weeks for DVT prophylaxis. Dressing over the incision site is to remain clean, dry, and intact. Contact clinic if the dressing becomes damaged or soiled. Patient is to remain weight-bearing as tolerated with the assistance of a front wheeled walker, standard total hip replacement protocol with posterior hip precautions. Patient is to contact the clinic with any concerns or questions. Any signs of increased redness, swelling, pain, warmth, or discharge from around the incision site should be reported to the clinic. Discharge Plan Discharge Plan Patient Disposition: SNF Provider Discharge Comment: Patient cleared for transfer pending PT clearance and snf facility placement and acceptance. I certify the postop hospital snf care is medically necessary on a continuing basis for any conditions for which he/ she received care during this hospitalization.: Yes The receiving facility has agreed to accept transfer and provide medical treatment.: Yes Discharge orders & Medications Prescriptions: New acetaminophen 325 mg Tablet 650 mg PO TID Qty: 90 RF: 0 aspirin 81 mg Tablet,Delayed Release (Dr/Ec) 81 mg PO BID Qty: 90 RF: 0 ibuprofen 400 mg Tablet 400 mg PO Q4HR Qty: 90 RF: 0 gabapentin [Neurontin] 300 mg Capsule 300 mg PO BID Qty: 60 RF: 0 oxycodone 5 mg Tablet 10 mg PO Q3HR PRN (Reason: Pain, Severe (7-10)) Qty: 42 RF: 0 Continued aspirin 325 mg Tablet 325 mg PO DAILY RF: 0 tamsulosin 0.4 mg Capsule 0.4 mg PO DAILY RF: 0 metoprolol succinate 25 mg Tablet Extended Release 24 Hr 25 mg PO DAILY RF: 0 atorvastatin 20 mg Tablet 20 mg PO BEDTIME RF: 0 metformin 1,000 mg Tablet 1,000 mg PO BID RF: 0 lisinopril 30 mg Tablet 15 mg PO DAILY RF: 0 gabapentin 300 mg Tablet 300 mg PO BID RF: 0 insulin detemir U-100 100 unit/mL (3 mL) Insulin Pen 24 unit SUBCUT QPM RF: 0 Jardiance 10 mg Tablet 10 mg PO QAM RF: 0 Humalog Pen 6 unit SUBCUT TID RF: 0 Follow up/Referrals: Rosanna Evans MD [Primary Care Provider] - Diet/Activity/Treatments Diet: Regular Activity: Weight-bearing as tolerated with the assistance of a front wheeled walker. Standard total hip replacement protocol with posterior hip precautions. Skin/Wound/Dressing Care Report to your healthcare provider any signs of infection, such as:: chills, fever, night sweats, increased pain, unusual drainage and unusual redness Dressing: Dressing over the incision site is to remain clean, dry, and intact. Contact clinic if the dressing becomes damaged or soiled. Other wound treatment: Avoid placing topical ointments over the incision site. Avoid soaking the incision site. Special Rehabilitation Services Reason for rehabilitation: Post-operative therapy Rehab type: Physical therapy Visit Report/Discharge Packet Instructions: DI for Hip Replacement, DI for Prescription Opioid Use Stand Alone Forms: Surgery Discharge Discharge Data Primary Care Provider: Rosanna Evans Attending Provider: Angella Garcia VTE Deep Vein Thrombosis/Pulmonary Embolism Present on Admission: No
--- NOTE | 2020-07-29 09:25 | CM.DPNOTE ---
Called Irene for an update on status on referral. Someone will call me back after they review the information. Adore Rdz CM Asst.
[2020-07-29] MEDS: lisinopriL 10 MG TABLET 15 MG PO (09:31)
[2020-07-29] MEDS: ACETAMINOPHEN 325 MG TABLET 650 MG PO ×3 (09:31→21:34)
[2020-07-29] MEDS: GABAPENTIN 300 MG CAPSULE PO ×2 (09:32→21:34)
[2020-07-29] MEDS: ASPIRIN EC 81 MG TABLET PO ×2 (09:32→21:35)
[2020-07-29] MEDS: TAMSULOSIN 0.4 MG CAPSULE PO (09:32)
[2020-07-29] MEDS: NF - Empagliflozin (Jardiance) 10 mg Tablet 10 EACH PO (09:32)
[2020-07-29] MEDS: DOCUSATE 100 MG CAPSULE PO ×2 (09:32→21:35)
[2020-07-29] MEDS: METOPROLOL ER 25 MG TABLET PO (09:32)
[2020-07-29] MEDS: METFORMIN HCL 500 MG TABLET 1000 MG PO ×2 (09:36→21:35)
--- NOTE | 2020-07-29 11:32 | PT.IPTN ---
Current Diagnoses Idiopathic aseptic necrosis of right femur (07/28/20) Surgery Performed Operation Date: 07/27/20 13:45 Actual Procedures p Total Hip Arthroplasty(Right) - Angella Garcia MD Physical Therapy Treatment Note M2 PT-IP Current Condition Start: 07/28/20 12:55 Freq: NEEDED Status: Active Protocol: Document 07/28/20 11:15 AB (Rec: 07/28/20 13:08 AB [id number]) Physical Therapy Current Condition Current Condition Evaluation Date 07/28/20 Treatment Diagnosis s/p R ZHEN posterior approach; difficulty in walking Onset Date 07/27/20 Precautions Posterior Hip Precautions No Hip Flexion > 90 degrees,No Hip Internal Rotation,No Hip Adduction Weight Bearing Status Weight Bearing Status Weight Bear as Tolerated Allowed Weight Bearing Amount (enter % RLE: WBAT or #) (%) M3 PT-IP Subjective Start: 07/28/20 12:55 Freq: NEEDED Status: Active Protocol: Document 07/29/20 11:18 CLB (Rec: 07/29/20 12:54 CLB [id number]) Subjective Physical Therapy Visit Type Type Treatment Note Visit Start Time 11:18 Visit Stop Time 11:32 Total Visit Minutes 14 Number of LOCATION ANALYST Visits 2 Physical Therapy Visit Comments Patient Comments agreeable to working with PT. Patient Goals Go to SNF to get stronger. Therapy Pain Assessment Pain When Pain Assessed At Rest Pain Present Pain Present Pain Reported Location Right Lower Hip Intensity 5 Scale Used Numeric (0 - 10) Description Spasm,With Movement Pain Behaviors Facial Grimacing,Wincing Pain Management Techniques Modification of Treatment,Re- positioning,Timing of Activity with Medications M4 PT-IP Mobility and Gait Start: 07/28/20 12:55 Freq: NEEDED Status: Active Protocol: Document 07/29/20 11:18 CLB (Rec: 07/29/20 12:54 CLB [id number]) PT-Bed Mobility Assessment Supine to Sit Supine to Sit Minimal Assistance,1 Person Assistance,Head of Bed Elevated PT-Transfer Assessment Sit to and From Stand Sit to and from Stand Contact Guard Assistance,1 Person Assistance,Use of Upper Extremities Equipment Transfer Assistive Device Gait Belt,Front Wheeled Walker Orthotic/Prosthetic Devices or Brace: No Transfer Ability Level of Assist Standby Assistance,1 Person Assistance,Use of Upper Extremities Comments Mobility Comments Pt sleeping upon arrival but agreed to get up for therapy. Pt required Min A for supine to sit and sit-stand. Pt ambulated in BR and able to stand SBA while using toilet. Pt then ambulated to sink washing hands SBA with heavy lean on counter. Pt ambulated in rose ~300ft with max cues for walker use as pt taking large steps walking close to front of walker. Pt returned to room with CURBSTONE SETTER present to assist pt with shower. Gait Assessment Gait Gait Assistance Required: Standby Assistance,1 Person Assist Distance (Feet) 300 Able to Maintain Weight Bearing Status Yes During Gait Assistive Devices Assistive Device Gait Belt,Front Wheeled Walker Orthotic/Prosthetic Devices or Brace: No Gait Deviations General Gait Pattern Antalgic,Decreased Stride Length,Decreased Feet Clearance,Step-to Gait Factors Limiting Gait Function Factors Limiting Gait Function Decreased Activity Tolerance, Decreased Strength,Difficulty Following Directions,Limited Range of Motion,Pain,Poor Safety Awareness Comments Gait Comments Refer to mobility comments M5 PT-IP Objective Assessments Start: 07/28/20 12:55 Freq: NEEDED Status: Active Protocol: Document 07/28/20 11:15 AB (Rec: 07/28/20 13:08 AB [id number]) Orientation Orientation/Cognition Level of Alertness Alert Orientation Name,Place,Situation Safety Awareness Decreased Safety Awareness Memory Description Short Term Impaired Strength Lower Extremity Strength Assessment Right Impaired Hip 3-/5 Knee 3+/5 Sensation Assessment Sensation Gross Sensation WNL Muscle Tone Muscle Tone WNL Yes M6 PT-IP Treatment Start: 07/28/20 12:55 Freq: NEEDED Status: Active Protocol: Document 07/29/20 11:18 CLB (Rec: 07/29/20 12:54 CLB [id number]) Physical Therapy Treatment Exercises Exercises Heel Slides Education Education Provided Precautions,Weight Bearing Status,Post-Op Packet,Safety M7 PT-IP Assessment and Plan Start: 07/28/20 12:55 Freq: NEEDED Status: Active Protocol: Document 07/29/20 11:18 CLB (Rec: 07/29/20 12:54 CLB [id number]) PT Summary Assessment and Plan Potential Rehabilitation Potential Good Status of Condition at Evaluation Evolving Summary Impairments Pain,ROM,Strength,Balance, Coordination,Sensation,Tone, Cognition,Bed Mobility, Transfers,Gait,Activity Tolerance Progress Towards Goals Progressing Toward Goals Assessment Summary Pt requiring Min A for supine- sit and sit-stand, pt then able to ambulate ~300ft w/FWW/ SBA with cues for safety and walker management. SNF rehab to improve strength and mobility independence. Goals Bed Mobility Goal Standby Assistance Transfer Goal Standby Assistance,Front Wheeled Walker Gait Goal Standby Assistance,Front Wheel Walker Gait Distance 100 Other Goals improve ambulation usign 4WW 150 ft SBA up/down 2 steps B rails SBA Days to Meet Goals 10 Frequency of Treatment Frequency Of Treatment Twice a Day Treatment Plan Physical Therapy Treatment Plan Bed Mobility Training,Transfer Training,Gait Training, Therapeutic Exercise,Balance Retraining,Post Op Education, Discharge Planning,Hot or Cold Pack,Neuromuscular Re-ed, Coordination Retraining,Manual Therapy Other Recommendations and Next Treatment review hip precautions and Focus post op ex, bed mobility, transfers, assess gait using 4WW and 1 step mgt using AD if safe. Precautions Posterior Hip Precautions No Hip Flexion > 90 degrees,No Hip Internal Rotation,No Hip Adduction Recommendations To Nursing Amount of Assist Needed 1 Person Assist Discharge Recommendations PT Discharge Recommendations SNF Rehab Equipment Needed for Home Before FWW if unsafe to use 4WW Discharge Transportation Needs at Discharge Wheelchair/Cabulance
[2020-07-29 12:11] VITALS: BP 137/87; PULSE 99; RESP 14; TEMP 36.1; O2SAT 96
[2020-07-29] MEDS: INSULIN LISPRO 100 UNIT/ML 3ML VIAL SUBCUT ×2 (12:24→17:27)
--- NOTE | 2020-07-29 13:28 | PT-IP ANOTE ---
Pt refused in pain 08/05 and is sleeping, will check back later today for therapy session.
--- NOTE | 2020-07-29 13:46 | CM.DPC ---
DCP: continued: Had lengthy phone conversation now with Homa/GREGORY. (see prior dcp notes for today). Homa says the team is willing to take pt and will have a bed for him tomorrow morning. She will call into the room to speak with pt for introductions and to assure him we will help him get through this as he rehabs and then goes to a motel afterwards. Pt is updated and seems relieved. RENATO Beck is updated, will obtain order for Rapid Covid Test. Am faxing snf orders and PASRR now to Homa. Homa is setting up w/c van transport for pt to be picked up at tomorrow 1030. P: GREGORY: 07/30: 1030 , Will be following closely tomorrow.
[2020-07-29 15:19] VITALS: BP 127/77; PULSE 93; RESP 16; TEMP 36.8; O2SAT 99
--- NOTE | 2020-07-29 15:38 | PT-IP ANOTE ---
checked on pt again and continues to refuse. stated that he is tired and already walked this morning. will f/u tomorrow.
[2020-07-29 16:11] LABS: COVID19 -Nasal RAPID Negative (Negative)
[2020-07-29] MEDS: INSULIN GLARGINE 100 UNIT/ML 3ML PEN 24 UNIT SUBCUT (17:27)
[2020-07-29 20:08] VITALS: BP 112/51; PULSE 86; RESP 17; TEMP 35.8; O2SAT 97
[2020-07-29] MEDS: ATORVASTATIN 20 MG TABLET PO (21:35)
[2020-07-29] MEDS: SODIUM CHLORIDE 0.9% FLUSH 10 ML IV (21:36)
[2020-07-30 01:25] VITALS: BP 123/72; PULSE 86; RESP 16; TEMP 36.9; O2SAT 92
[2020-07-30] MEDS: IBUPROFEN 400 MG TABLET PO ×3 (01:26→08:54)
[2020-07-30 05:30] VITALS: BP 141/89; PULSE 93; RESP 16; TEMP 36.8; O2SAT 95
--- NOTE | 2020-07-30 07:35 | P.PN_ITS ---
Subjective Subjective Date Patient Seen: 07/30/20 Time Patient Seen: 07:35 Interval history: Patient states he is doing well overall and feels his pain has improved significantly since yesterday. At this time the patient denies fever, chills, nausea, chest pain, shortness of breath, or urinary retention. Patient reports good sensation throughout the bilateral lower extremities, and he reports that sensation has improved gradually since surgery. Exam Vital Signs (past 8 hours): - 07/30/20 01:25 07/30/20 05:30 Temperature 98.4 F 98.2 F Pulse Rate 86 93 H Respiratory Rate 16 16 Blood Pressure 123/72 141/89 H Pulse Oximetry 92 95 Oxygen Delivery Method Room Air Oxygen Flow Rate 0 Narrative Exam Narrative: 60-year-old male postop day 3 status post right posterior total hip arthroplasty. Patient is resting comfortably in bed, is in no acute distress, is alert and oriented x3. Skin is warm and dry, and the skin surrounding the incision site is free of erythema, warmth, induration, or discharge. Arvind dressing over the incision site is clean, dry, intact, and functional. Good sensation appreciated throughout the bilateral lower extremities, however patient does note slight tingling sensation on the plantar aspect of the feet are palpated bilaterally. Hip flexion performed bilaterally without difficulty or discomfort, left greater than right. Ankle dorsiflexion, plantar flexion, eversion, inversion performed bilaterally without difficulty or discomfort. Calves are soft and nontender, negative Homans sign. DP pulses palpated bilaterally. No other signs of DVT appreciated. Const General: cooperative, healthy appearing and comfortable Resp Effort & Inspection: normal respiratory effort and able to speak in complete sentences Skin General: no rashes or lesions noted Objective Labs Result Diagrams: 07/28/20 05:08 07/27/20 13:41 Labs: Laboratory Results - last 24 hr 07/29/20 15:05 SARS-CoV-2 (PCR) Negative PFSH Medical History Abdominal pain Arrhythmia Depression Diverticulitis Elevated cholesterol Enlarged prostate Fracture Headache History of diverticulitis History of diverticulosis Hyperlipidemia Hypertension IDDM (insulin dependent diabetes mellitus) Idiopathic aseptic necrosis of right femur Intentional weight loss Low back pain Macular drusen Peripheral neuropathy Psychosocial stressors RBBB Sleep apnea Tachycardia Umbilical hernia Surgical History H/O Achilles tendon repair History of appendectomy History of colon resection History of colonoscopy S/P left knee arthroscopy S/P right knee arthroscopy Social History household members: none Smoking Status: Current some day smoker alcohol intake: current Assessment & Plan Post-op Postoperative Procedures: Procedures Operation Date: 07/27/20 13:45 Actual Procedures Side Surgeon p Total Hip Arthroplasty Right Angella Garcia MD Postoperative day: 3 Postoperative status: doing well Postoperative plan: ambulate Postoperative plan narrative: Patient is to continue working on ambulation with the assistance of a front wheeled walker with physical therapy. Current pain management regimen is to be continued. Aspirin 81 mg twice daily is to be continued for DVT prophylaxis. Plan for transfer to retirement facility likely today. Time Spent With Patient Time with patient: less than 15 minutes Quality VTE Deep Vein Thrombosis/Pulmonary Embolism Present on Admission: No
[2020-07-30 07:37] VITALS: BP 133/90; PULSE 100; RESP 16; TEMP 36.2; O2SAT 98
[2020-07-30] MEDS: INSULIN LISPRO 100 UNIT/ML 3ML VIAL 6 UNIT SUBCUT (08:44)
[2020-07-30] MEDS: NF - Empagliflozin (Jardiance) 10 mg Tablet 10 EACH PO (08:44)
[2020-07-30] MEDS: ASPIRIN EC 81 MG TABLET PO (08:53)
[2020-07-30] MEDS: ACETAMINOPHEN 325 MG TABLET 650 MG PO (08:53)
[2020-07-30] MEDS: GABAPENTIN 300 MG CAPSULE PO (08:53)
[2020-07-30 08:54] VITALS: BP 133/90; PULSE 100
[2020-07-30] MEDS: lisinopriL 10 MG TABLET 15 MG PO (08:54)
[2020-07-30 08:55] VITALS: BP 133/90; PULSE 100
[2020-07-30] MEDS: METOPROLOL ER 25 MG TABLET PO (08:55)
[2020-07-30] MEDS: METFORMIN HCL 500 MG TABLET 1000 MG PO (08:55)
[2020-07-30] MEDS: SODIUM CHLORIDE 0.9% FLUSH 10 ML IV (08:55)
[2020-07-30] MEDS: TAMSULOSIN 0.4 MG CAPSULE PO (08:55)
[2020-07-30] MEDS: DOCUSATE 100 MG CAPSULE PO (08:57)
--- NOTE | 2020-07-30 09:10 | CM.DPC ---
DCP: continued. Spoke with CHANTELLE Gomez this morning with update on this case. He also conferred with UR RENATO Curtis and has cancelled the d/c order from yesterday and a new d/c order for 07/[address]. Pt is now all set for d/c to [facility] this morning. [facility] transport as set up by the [facility]. COVID 19 - test from 07/29/1529 is faxed now to [facility] and placed to [facility] packet. Checked in with pt and RENATO Herrmann to update them. Homa/[facility] is contacted via phone conversation and gives Nurse/Nurse report #. Will follow prn until pt leaves.
[2020-07-30] MEDS: OXYCODONE IR 5 MG TABLET PO (10:02)
--- NOTE | 2020-07-30 10:42 | PC.NURSE ---
Patient A/O x 4. Dsg CDI, pinpoint drainage noted. SUZETTE NWPT intact. Patient on room air, 98%, lungs CTA. Gave report to Homa at [facility]. Patient's IV removed for discharge. Patient tolerated. Patient given Oxy 5mg for transport and d/t 5/10 pain. Patient transported via wheelchair, belongings with patient, prescriptions in packet and given to facility designee.
== END 2020-07-30 10:38 ==
LOC: OR 14:56 → AC 14:56
PROVIDERS: Physician Assistant; Admitting Provider Orthopaedic Surgery; PCP Student in an Organized Health Care Education/Training Program; Referring Provider Orthopaedic Surgery; Visit Provider Orthopaedic Surgery
PROC: 0SR90JZ Replacement of Right Hip Joint with Synthetic Substitute, Open Approach (ICD-10-PCS; CPT 27130; principal; 2020-07-27 13:45)
DX: M16.51 Unilateral post-traumatic osteoarthritis, right hip (principal); M87.051 Idiopathic aseptic necrosis of right femur; I10 Essential (primary) hypertension; E11.9 Type 2 diabetes mellitus without complications; Z79.4 Long term (current) use of insulin; F17.210 Nicotine dependence, cigarettes, uncomplicated; Z20.822 Contact with and (suspected) exposure to COVID-19
CPT/HCPCS: 27130; 36415; 72170; 73502; 80048; 82962; 83036; 85014; 85018; 85025; 87635; 97116; 97162; 97530; C1776; C9803; G0378; C9290; J0171; J0690; J1815; J2250; J2704; J3010